=== PATIENT | male | born 1990 | race Caucasian/White ===

== ENCOUNTER 2024-04-14 07:42 | Emergency (ER) | payer OTHER ==
[~2024-04-14] VITALS: Ht 167.6 cm; Wt 113.4 kg
[2024-04-14 07:50] VITALS: PULSE 79; RESP 17; TEMP 98.7
[2024-04-14] MEDS ORDERED: TRIAMCINOLONE A15 G3 TOP (08:12)
[2024-04-14 08:27] VITALS: BP 156/94; PULSE 68; RESP 14; O2SAT 100
== END 2024-04-14 09:00 | disposition home or self-care (01) ==
LOC: ER 07:58
DX: R21 Rash and other nonspecific skin eruption (principal)
CPT/HCPCS: 99282